=== PATIENT | female | born 1965 | race American Indian/Alaskan Native ===

== ENCOUNTER 2019-07-20 08:05 | Emergency (ER) | payer OTHER ==
[~2019-07-20] VITALS: Ht 162.6 cm; Wt 88.5 kg
[2019-07-20] MEDS ORDERED: VITAMIN D1000 UNIT PO (08:17)
== END 2019-07-20 09:04 | disposition home or self-care (01) ==
LOC: ED 08:05
DX: H83.09 Labyrinthitis, unspecified ear (principal); R42 Dizziness and giddiness; Z79.899 Other long term (current) drug therapy
CPT/HCPCS: 99283